=== PATIENT | male | born 1960 | race Caucasian/White ===

== ENCOUNTER 2017-04-05 13:30 | Emergency (ER) | payer OTHER ==
[~2017-04-05] VITALS: Ht 177.8 cm; Wt 140.0 kg
[2017-04-05 13:42] VITALS: BP 126/68; PULSE 94; RESP 16; TEMP 98.2; O2SAT 97
[2017-04-05] MEDS ORDERED: ROBA500T PO (16:04)
[2017-04-05] MEDS ORDERED: ORPHENADRINE INJ 60 MG/2 ML AMP IM ONE (16:15)
[2017-04-05] MEDS ORDERED: KETOROLAC TROMETHAMINE 60 MG/2 ML (IM) VIAL IM ONE (16:15)
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
== END 2017-04-05 17:58 | disposition home or self-care (01) ==
LOC: NEPK 13:30
DX: S13.4XXA Sprain of ligaments of cervical spine, initial encounter (principal); M54.5 Low back pain; V89.2XXA Person injured in unspecified motor-vehicle accident, traffic, initial encounter
CPT/HCPCS: 70450; 72020; 72100; 72125; 96372; 99284; J1885; J2360